=== PATIENT | male | born 2000 | race Caucasian/White ===

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

== ENCOUNTER 2020-04-09 14:27 | Emergency (ER) | payer SELFPAY ==
[2020-04-09 14:29] VITALS: BP 137/76; PULSE 86; RESP 16; TEMP 36.7; O2SAT 98
--- NOTE | 2020-04-09 14:30 | DI.RAD_ITS ---
EXAM: XR ELBOW LT COMPLETE and XR forearm LT CLINICAL HISTORY: pain s/p fall. TECHNIQUE: 2D digital imaging was performed. COMPARISON: No previous for comparison. FINDINGS: BONES: No acute fracture is present. No bony destructive lesion is seen. JOINTS: The elbow is normally aligned. No joint effusion is seen. SOFT TISSUE: Normal. IMPRESSION: Unremarkable radiographs of the left elbow and left forearm. DATA REPOSITORY: RADIATION DOSE DELIVERED:
--- NOTE | 2020-04-09 14:30 | DI.RAD_ITS ---
EXAM: XR ELBOW RT COMPLETE CLINICAL HISTORY: pain s/p fall. TECHNIQUE: 2D digital imaging was performed. COMPARISON: No exams were available for comparison FINDINGS: BONES: No acute fracture is present. No bony destructive lesion is seen. JOINTS: The elbow is normally aligned. No joint effusion is seen. SOFT TISSUE: Normal. IMPRESSION: Unremarkable radiographs of the right elbow. DATA REPOSITORY: RADIATION DOSE DELIVERED:
--- NOTE | 2020-04-09 14:41 | ED.GENADUL_ITS ---
Discharge Plan Disposition Patient Disposition: HOME Condition: Stable Discharge Details Chief Complaint: Orthopedic Clinical Impression: Contusion of arm, left, Contusion of elbow, right Primary Care Provider: James Arthur ED Provider: Francis Graham Home Meds and New Rx's Prescriptions: Continued omeprazole 40 mg capsule,delayed release(DR/EC) 40 mg PO DAILY Qty: 30 RF: 3 levalbuterol tartrate [Xopenex HFA] 200 PUFF HFA aerosol inhaler 2 puff Inhalation PRN PRNRF: 0 acetaminophen [Tylenol Extra Strength] 500 mg Tablet 500 mg PO PRN PRNRF: 0 Discharge Instructions Instructions: Contusion in Adults (ED) Additional Instructions: you can take 1000mg tylenol and 600mg ibuprofen every 6 hours as needed if pain continues in a week see your primary care provider if you have severe worsening pain, new pain such as head pain or persistent vomit return to the emergency department Medical Decision Making 19 yo male was on a ladder about 12 feet up when the ladder slid out and he landed on the ladder on his arms and legs. Did not hit head, no loc and no neck pain. Denies any head pain, neck pain, chest pain, back ain or abdominal pain. Has mild mid tibia pain and bruising is bearing weight no limp and states pain is mild so suspect contusion. Has no signs of head trauma. No midline neck pain with full rom, soft abdomen. No midline T and L spine. Has pain in the left elbow, left mid forearm with some mild swelling and right elbow tenderness but has full rom of the elbows, wrists, hands and no snuffbox tenderness. Suspect contusions of the arms but will xray the arms to eval for fx's xray negative of elbows and forearm. Remains stable without new pain, will d/c home with return precautions Differential Diagnosis Differential Diagnosis: contusion, fracture Imaging Data Radiologic Study: Attestation: I personally reviewed and interpreted this imaging study as follows: Imaging: X-Ray My impression: no acute findings left elbow xray Radiologic Study #2: Attestation: I personally reviewed and interpreted this imaging study as follows: Imaging: X-Ray Radiologist's impression: no acute findings left forearm xray Radiologic Study #3: Attestation: I personally reviewed and interpreted this imaging study as follows: Imaging: X-Ray Radiologist's impression: no acute findings right elbow xray HPI General Mode of arrival: ambulatory . Date/Time Provider Initiated Documentation: 04/09/20 14:34 . Limitations to Documentation: no limitations . Information obtained by: patient . History of Present Illness 19 year old M presents to the emergency department with the chief complaint of fall off ladder, described as moderate, Patient started experiencing this hour(s) (2) and it has been constant. No relieving factors improve symptom(s), No exacerbating factors reported . Patient did receive the following treatments prior to arrival, none Related Data Home Medications Medication Instructions Recorded Confirmed levalbuterol tartrate [Xopenex HFA] 2 puff INHALATION PRN PRN 08/13/13 04/09/20 acetaminophen [Tylenol Extra 500 mg PO PRN PRN 06/11/19 04/09/20 Strength] omeprazole 40 mg capsule,delayed 40 mg PO DAILY #30 cap 12/27/19 04/09/20 release Previous Rx's Medication Instructions Recorded omeprazole 40 mg capsule,delayed 40 mg PO DAILY #30 cap 12/27/19 release Allergies Allergy/AdvReac Type Severity Reaction Status Date / Time No Known Allergies Allergy Unverified 04/09/20 14:34 General Stated Complaint: Orthopedic LAVON: 3 Review of Systems All systems reviewed & are unremarkable except as noted in HPI and below Constitutional Constitutional: Denies chills, Denies fever(s) and Denies weakness Cardiovascular Cardiovascular: Denies chest pain and Denies dyspnea Respiratory Respiratory: Denies cough and Denies dyspnea Gastrointestinal Gastrointestinal: Denies abdominal pain, Denies nausea and Denies vomiting Neurologic Neurologic: Denies weakness Psychiatric Psychiatric: Denies depression [facility] Medical History (Updated 04/09/20 @ 15:16 by Francis Graham MD) Asthma (Resolved) Biliary dyskinesia (Inactive) Concussion (Inactive) GERD (gastroesophageal reflux disease) (Chronic) Helicobacter positive gastritis (Resolved) Hiatal hernia with gastroesophageal reflux (Inactive) Surgical History H/O adenoidectomy (Acute) H/O esophagogastroduodenoscopy (Resolved ~06/11/19) Helicobacter pylori infection treated with 14 days of antibiotics History of laparoscopic cholecystectomy (Acute ~09/18/19) Family History Mother No problems noted. Father No problems noted. Other Cancer Diabetes Social History Smoking/Tobacco Use Status: Never Alcohol Intake: former Drug use: Daily Substance use type: marijuana Current gender identity: male Do you feel safe at home: Yes Do you feel safe in your relationship?: Yes Exam Const General: no acute distress Orientation: alert HENMT Head: normal to inspection Ears: external ears normal General nose exam: external nose normal Mouth: moist mucous membranes Eyes General: appearance normal, both eyes and all related structures Neck Neck: normal visual inspection Resp Effort & Inspection: normal respiratory effort and able to speak in complete sentences Cardio Rate: regular rate Skin General skin exam: no rashes or lesions noted Neuro General: patient alert and patient oriented x3 Extrem General: full ROM Psych Mental Status: mental status grossly normal Course Vital Signs Vital signs: Vital Signs Temperature 36.7 C 04/09/20 14:29 Pulse 86 04/09/20 14:29 Respiratory Rate 16 04/09/20 14:29 Blood Pressure 137/76 04/09/20 14:29 Pulse Oximetry 98 04/09/20 14:29 Temperature 36.7 C 04/09/20 14:29 Temperature Source Skin 04/09/20 14:29 Pulse 86 04/09/20 14:29 Respiratory Rate 16 04/09/20 14:29 Respiratory Effort 04/09/20 14:34 Blood Pressure 137/76 04/09/20 14:29 Blood Pressure Position Sitting 04/09/20 14:29 Pulse Oximetry 98 04/09/20 14:29 Oxygen Delivery Method Room Air 04/09/20 14:29 Oxygen Flow Rate 0 04/09/20 14:29 Pain Level 8 04/09/20 14:35 Comment ice after fall but no otc relief 04/09/20 14:29
[2020-04-09] MEDS: Acetaminophen 500 MG TAB 1000 MG PO (14:46)
== END 2020-04-09 15:23 | disposition home or self-care (01) ==
PROVIDERS: Emergency Provider Emergency Medicine; PCP Internal Medicine
DX: S50.01XA Contusion of right elbow, initial encounter (principal); S50.12XA Contusion of left forearm, initial encounter; M79.669 Pain in unspecified lower leg; W11.XXXA Fall on and from ladder, initial encounter
CPT/HCPCS: 99284; 73080; 73090

== ENCOUNTER 2020-05-19 15:34 | Outpatient (REF) | payer BC, SELFPAY ==
[2020-05-21 14:43] LABS: Helicobacter pylori Ag, Feces Negative (Negative)
== END 2020-05-19 15:54 ==
LOC: LBN 15:34
PROVIDERS: PCP Internal Medicine; Visit Provider Surgery
DX: R11.2 Nausea with vomiting, unspecified (principal); Z86.19 Personal history of other infectious and parasitic diseases
CPT/HCPCS: 87338

== ENCOUNTER 2020-08-05 16:04 | Outpatient (REF) | payer BC, SELFPAY ==
[2020-08-08 10:00] LABS: COVID-19 RT-PCR Result NEGATIVE (Negative)
== END 2020-08-05 16:24 ==
LOC: NCHCN 16:04
PROVIDERS: PCP Internal Medicine; Visit Provider Internal Medicine
DX: Z20.828 Contact with and (suspected) exposure to other viral communicable diseases (principal)
CPT/HCPCS: U0003

== ENCOUNTER 2020-09-01 20:03 | Emergency (ER) | payer BC, SELFPAY ==
[2020-09-01 20:10] VITALS: BP 139/74; PULSE 70; RESP 18; TEMP 36.6; O2SAT 98
--- NOTE | 2020-09-01 20:23 | ED.GENADUL_ITS ---
Discharge Plan Disposition Patient Disposition: HOME Condition: Stable Discharge Details Clinical Impression: Cellulitis of foot, left Primary Care Provider: James Arthur ED Provider: Francis Graham Home Meds and New Rx's Prescriptions: New amoxicillin-pot clavulanate [Augmentin] 875-125 mg tablet 1 tab PO BID Qty: 14 RF: 0 Continued omeprazole 40 mg capsule,delayed release(DR/EC) 40 mg PO BID Qty: 60 RF: 0 levalbuterol tartrate [Xopenex HFA] 200 PUFF HFA aerosol inhaler 2 puff Inhalation PRN PRNRF: 0 acetaminophen [Tylenol Extra Strength] 500 mg Tablet 500 mg PO PRN PRNRF: 0 Discharge Instructions Instructions: Cellulitis (ED) Additional Instructions: if not improving within 5 days follow up with your primary care provider if redness spreads up the leg or you have fevers or severe worsening pain return to the emergency department Medical Decision Making 20 yo male comes in with redness of his left little toe since yesterday. Denies any known trauma but wears steal toe boots and felt his toe was getting irritated from them. No fevers, chills, or severe pain. Has erythema to the left toe circumfrentially without significant tenderness intact sensation and no significant warmth. Could just be irritated skin from improper fitting shoes but will cover for cellulitis. No findings to suggest nec fasc on exam. Differential Diagnosis Differential Diagnosis: cellulitis, irritation HPI General Mode of arrival: ambulatory . Date/Time Provider Initiated Documentation: 09/01/20 20:08 . Limitations to Documentation: no limitations . Information obtained by: patient . History of Present Illness 20 year old M presents to the emergency department with the chief complaint of left little toe redness, described as mild, and it has been constant. No relieving factors improve symptom(s), No exacerbating factors reported . Patient notes no other symptoms.. Patient did receive the following treatments prior to arrival, none Related Data Home Medications Medication Instructions Recorded Confirmed levalbuterol tartrate [Xopenex HFA] 2 puff INHALATION PRN PRN 08/13/09/01/20 acetaminophen [Tylenol Extra 500 mg PO PRN PRN 06/11/19 09/01/20 Strength] omeprazole 40 mg capsule,delayed 40 mg PO BID #60 cap 05/19/20 09/01/20 release amoxicillin-pot clavulanate 1 tab PO BID #14 tab 09/01/20 [Augmentin] Previous Rx's Medication Instructions Recorded omeprazole 40 mg capsule,delayed 40 mg PO BID #60 cap 05/19/20 release amoxicillin-pot clavulanate 1 tab PO BID #14 tab 09/01/20 [Augmentin] Allergies Allergy/AdvReac Type Severity Reaction Status Date / Time No Known Allergies Allergy Unverified 04/09/20 14:34 General Stated Complaint: Orthopedic LAVON: 4 Review of Systems All systems reviewed & are unremarkable except as noted in HPI and below Constitutional Constitutional: Denies chills, Denies fever(s) and Denies weakness Cardiovascular Cardiovascular: Denies chest pain and Denies dyspnea Respiratory Respiratory: Denies cough and Denies dyspnea Gastrointestinal Gastrointestinal: Denies abdominal pain, Denies nausea and Denies vomiting Musculoskeletal Musculoskeletal: Denies joint swelling Neurologic Neurologic: Denies weakness PFSH Medical History Asthma Biliary dyskinesia Concussion GERD (gastroesophageal reflux disease) Helicobacter positive gastritis Hiatal hernia with gastroesophageal reflux Surgical History H/O adenoidectomy H/O esophagogastroduodenoscopy (~06/11/19) Helicobacter pylori infection treated with 14 days of antibiotics History of laparoscopic cholecystectomy (~09/18/19) Family History Mother No problems noted. Father No problems noted. Other Cancer Diabetes Social History Smoking/Tobacco Use Status: Never Smoking risk assessment performed?: Yes Alcohol Intake: former Drug use: Daily Substance use type: marijuana Current gender identity: male Do you feel safe at home: Yes Do you feel safe in your relationship?: Yes Exam Const General: no acute distress Orientation: alert HENMT Head: normal to inspection Ears: external ears normal General nose exam: external nose normal Mouth: moist mucous membranes Eyes General: appearance normal, both eyes and all related structures Neck Neck: normal visual inspection Resp Effort & Inspection: normal respiratory effort and able to speak in complete sentences Cardio Rate: regular rate Skin General skin exam: elasticity normal Neuro General: patient alert and patient oriented x3 Extrem General: full ROM and capillary refill normal Psych Mental Status: mental status grossly normal Course Vital Signs Vital signs: Vital Signs Temperature 36.6 C 09/01/20 20:10 Pulse 70 09/01/20 20:10 Respiratory Rate 18 09/01/20 20:10 Blood Pressure 139/74 09/01/20 20:10 Pulse Oximetry 98 09/01/20 20:10 Temperature 36.6 C 09/01/20 20:10 Temperature Source Temporal Artery Scan 09/01/20 20:10 Pulse 70 09/01/20 20:10 Respiratory Rate 18 09/01/20 20:10 Respiratory Effort 09/01/20 20:14 Blood Pressure 139/74 09/01/20 20:10 Blood Pressure Position Sitting 09/01/20 20:10 Pulse Oximetry 98 09/01/20 20:10 Oxygen Delivery Method Room Air 09/01/20 20:10 Oxygen Flow Rate 0 09/01/20 20:10 Pain Level 3 09/01/20 20:14 Comment 09/01/20 20:10
[2020-09-01] MEDS: Amoxicillin 875/Clav. 125 TAB PO (20:26)
== END 2020-09-01 20:30 | disposition home or self-care (01) ==
LOC: ER 20:27
PROVIDERS: Emergency Provider Emergency Medicine; PCP Internal Medicine
DX: L03.032 Cellulitis of left toe (principal)
CPT/HCPCS: 99283

== ENCOUNTER 2020-09-29 21:12 | Outpatient (REF) | payer BC, SELFPAY ==
[2020-09-30 14:10] LABS: COVID-19 RT-PCR UVMMC Result Positive (Negative)
== END 2020-09-29 21:13 | disposition home or self-care (01) ==
LOC: NCHCN 21:12
PROVIDERS: PCP Internal Medicine; Visit Provider Internal Medicine
DX: Z20.822 Contact with and (suspected) exposure to COVID-19 (principal)
CPT/HCPCS: U0003

== ENCOUNTER 2021-03-09 09:42 | Emergency (ER) | payer BC, SELFPAY ==
[2021-03-09 09:53] VITALS: BP 115/73; PULSE 77; RESP 20; TEMP 37.1; O2SAT 99
--- NOTE | 2021-03-09 10:08 | W.ED.GENAD ---
Discharge Plan Disposition Patient Disposition: HOME Condition: Improving Discharge Details Clinical Impression: Asthma exacerbation Primary Care Provider: James Arthur ED Provider: Jesika Calderon Home Meds and New Rx's Prescriptions: New prednisone 20 mg tablet 40 mg PO DAILY 5 Days Qty: 10 RF: 0 albuterol sulfate 90 mcg/actuation HFA aerosol inhaler 2 puff IH QID PRN (Reason: shortness of breath or wheezing) Qty: 8 RF: 0 No Action levalbuterol tartrate [Xopenex HFA] 200 PUFF HFA aerosol inhaler 2 puff Inhalation PRN PRNRF: 0 acetaminophen [Tylenol Extra Strength] 500 mg Tablet 500 mg PO PRN PRNRF: 0 budesonide-formoterol [Symbicort] 160-4.5 mcg/actuation HFA aerosol inhaler 1 inh INHALATION BID RF: 0 omeprazole 40 mg capsule,delayed release(DR/EC) 40 mg PO DAILY RF: 0 Discharge Instructions Instructions: Asthma (ED) Additional Instructions: Follow up with primary care provider in 3-5 days. Return to ED sooner if any worsening or concerns. Increase oral fluids. Take prednisone tablets daily for the next 5 days as directed. Use albuterol inhaler 2 puffs every 4-6 hours as needed Stand Alone Forms: PENDING COVID-19 TESTING, Work Release Referrals: James Arthur MD [Primary Care Provider] - Discharge Data Discharge Date/Time-TO BE ENTERED AT DEPARTURE: 03/09/21 11:05 Medical Decision Making 20-year-old male presents to the ER with chief complaint of back. He was working on Lasix and did not have an albuterol inhaler. DuoNeb inhaler ordered, portable chest x-ray and Covid test ordered. Chest x-ray negative for acute pulmonary abnormalities. Patient re-evaluated. Is in no acute distress, no complaints at this time. Vital signs stable, breathing eupneic., Wheezing has decreased mild expiratory wheezes still noted in the left lower base. Patient is to be discharged home with albuterol and prednisone 40 mg daily x5 days. Instructed to follow-up with PCP. HPI General Mode of arrival: ambulatory. Date/Time Provider Initiated Documentation: 03/09/21 10:06. Limitations to Documentation: no limitations. Information obtained by: patient. HPI Narrative: 20-year-old male with a history of asthma presents to the ER with chief complaint of shortness of breath after working in some insulation attic today. He reports he had a asthma attack prior to arrival began coughing and vomiting. He has not taken any albuterol today prior to arrival. He denies any fever. He does endorse sore throat. Denies any sick contacts. He did see his PCP yesterday who prescribed him a new inhaler Symbicort but has not picked it up yet. Upon initial exam he does have some expiratory wheezes in the bases. He is speaking in full sentences O2 sat is 99% on room air. He is not vaccinated for Covid at this time and does not wish to be vaccinated today. He is a current daily smoker. He has a history of adenoidectomy, gastritis, GERD. Related Data Home Medications Medication Instructions Recorded Confirmed levalbuterol tartrate [Xopenex HFA] 2 puff INHALATION PRN PRN 08/13/13 03/09/21 acetaminophen [Tylenol Extra 500 mg PO PRN PRN 06/11/19 03/09/21 Strength] albuterol sulfate 2 puff IH QID PRN #8 gm 03/09/21 budesonide-formoterol [Symbicort] 1 inh INHALATION BID 03/09/21 03/09/21 omeprazole 40 mg PO DAILY 03/09/21 03/09/21 prednisone 40 mg PO DAILY 5 Days #10 tab 03/09/21 Previous Rx's Medication Instructions Recorded albuterol sulfate 2 puff IH QID PRN #8 gm 03/09/21 prednisone 40 mg PO DAILY 5 Days #10 tab 03/09/21 Allergies Allergy/AdvReac Type Severity Reaction Status Date / Time No Known Allergies Allergy Unverified 03/09/21 09:56 General Stated Complaint: SOB LAVON: 4 Review of Systems Narrative: Constitutional: Negative for weight loss, alert and oriented, well groomed, normal body habitus, appears comfortable. HEENT: Denies trauma, headaches, blurry vision, nasal discharge, sore throat, trouble swallowing. Chest: Denies chest pain, palpitations, irregular rhythm, hypertension. Respiratory: Denies hemoptysis. Positive shortness of breath nonproductive cough. GI: Denies abdominal pain, nausea, vomiting, diarrhea, constipation. : Denies dysuria, hematuria, flank pain, rectal bleeding. Neuro: Denies dizziness, blurry vision, weakness, syncope, headache or facial numbness. Hematologic: Denies easy bruising, intolerance to heat or cold, hair loss. [facility] Medical History Asthma Biliary dyskinesia Concussion GERD (gastroesophageal reflux disease) Helicobacter positive gastritis Hiatal hernia with gastroesophageal reflux Surgical History H/O adenoidectomy H/O esophagogastroduodenoscopy (~06/11/19) Helicobacter pylori infection treated with 14 days of antibiotics History of laparoscopic cholecystectomy (~09/18/19) Family History Mother No problems noted. Father No problems noted. Other Cancer Diabetes Social History Smoking/Tobacco Use Status: Current every day Tobacco Type: cigarettes Smoking risk assessment performed?: Yes Alcohol Intake: former Drug use: Daily Substance use type: marijuana Current gender identity: male Do you feel safe at home: Yes Do you feel safe in your relationship?: Yes Exam Narrative Exam Narrative: Constitutional: Alert and oriented x3. Appears stated age. Normal body habitus. Speaking in full sentences. Head: Normocephalic, no trauma. Eyes: Pupils PERRLA, Red reflex noted, EOM's intact. Eyelids symmetrical without lesions, discharge, or swelling. ENT: Bilateral TM's WNL, External ear normal to inspection, no mastoid TTP, swelling, or erythema, Nasal turbinates WNL, no nasal discharge. Normal dentition, Posterior pharynx WNL, no exudate. No anterior cervical lymphadenopathy. Chest: RRR, Normal S1, S2, distal pulses intact. Resp: Bilateral scattered expiratory wheezes to auscultation, rhonchi in the bases bilaterally. Musculoskeletal: Normal gait, 5/5 strength to all four extremities. Skin: No suspicious rashes or lesions. Capillary refill less than 2 sec. Neurologic: Cranial nerves II-XII intact. Alert and oriented x 3. DTR's intact. Hematologic/Lymphatic: No ecchymosis, no lymphadenopathy. Course Vital Signs Vital signs: Vital Signs Temperature 37.1 C 03/09/21 09:53 Pulse 77 03/09/21 09:53 Respiratory Rate 20 03/09/21 09:53 Blood Pressure 115/73 03/09/21 09:53 Pulse Oximetry 99 03/09/21 09:53 Temperature 37.1 C 03/09/21 09:53 Temperature Source Skin 03/09/21 09:53 Pulse 77 03/09/21 09:53 Respiratory Rate 20 03/09/21 09:53 Respiratory Effort Non-Labored 03/09/21 09:55 Blood Pressure 115/73 03/09/21 09:53 Blood Pressure Position Sitting 03/09/21 09:53 Pulse Oximetry 99 03/09/21 09:53 Oxygen Delivery Method Room Air 03/09/21 09:53 Oxygen Flow Rate 0 03/09/21 09:53
--- NOTE | 2021-03-09 10:24 | DI.RAD_ITS ---
Exam(s) XR PORTABLE CHEST AP EXAM: XR PORTABLE CHEST AP CLINICAL HISTORY: Wheezing, SOB, TECHNIQUE: 2D digital imaging was performed. COMPARISON: No exams were available for comparison FINDINGS: LUNGS: Clear. No pleural abnormality seen. HEART: Normal. MEDIASTINUM: Normal. BONES: Unremarkable. IMPRESSION: No acute pulmonary findings. DATA REPOSITORY: RADIATION DOSE DELIVERED:
[2021-03-09] MEDS: Albuterol/Ipratropium 3 ML UPD VIAL UPD (10:37)
[2021-03-11 12:42] LABS: COVID-19 RT-PCR UVMMC Result Negative (Negative)
== END 2021-03-09 11:05 | disposition home or self-care (01) ==
PROVIDERS: Emergency Provider Registered Nurse Emergency; PCP Internal Medicine
DX: J45.901 Unspecified asthma with (acute) exacerbation (principal); F17.210 Nicotine dependence, cigarettes, uncomplicated; Z20.822 Contact with and (suspected) exposure to COVID-19
CPT/HCPCS: 94640; 99283; U0003; 71045; J7620

== ENCOUNTER 2021-03-23 17:16 | Outpatient (REF) | payer BC, SELFPAY ==
[2021-03-23 17:16] LABS: Abs Immature Grans 0.02 10^3/uL (0.0-0.06); Absolute Basophil Count 0.06 10^3/uL (0.0-0.2); Absolute Eosinophil Count 0.03 10^3/uL (0.0-0.7); Absolute Lymphocyte Count 1.91 10^3/uL (1.2-3.4); Absolute Monocyte Count 0.68 10^3/uL (0.1-0.8); Absolute Neutrophil Count 4.42 10^3/uL (1.2-6.7); Basophils % 0.8; Eosinophils % 0.4; HCT 43.1 % (40.0-50.0); HGB 14.2 g/dL (13.5-17.5); Immature Grans % 0.3; Lymphocytes % 26.8; MCHC 32.9 % (32.0-36.0); MCV 91.1 fL (80-95); MPV 11.1 fL (8.0-11.0); Monocytes % 9.6; Neutrophils % 62.1; Nucleated RBC 0 %; Platelet Count 203 10^3/uL (130-400); RBC 4.73 10^6/uL (4.36-5.78); RDW 12.6 % (11.8-14.1); WBC 7.12 10^3/uL (4.4-10.8)
[2021-03-24 10:00] LABS: IgE 73 IU/mL (<158)
[2021-03-24 21:37] LABS: Aspergillus Fumigatus IgE <0.35 kU/L
== END 2021-03-23 17:17 | disposition home or self-care (01) ==
LOC: LBN 17:16
PROVIDERS: PCP Internal Medicine; Visit Provider Student in an Organized Health Care Education/Training Program
DX: J45.909 Unspecified asthma, uncomplicated (principal)
CPT/HCPCS: 82785; 85025; 86003

== ENCOUNTER 2021-08-10 08:53 | Emergency (ER) | payer OTHER, SELFPAY ==
[2021-08-10 08:57] VITALS: BP 128/70; PULSE 88; TEMP 37.2; O2SAT 100
--- NOTE | 2021-08-10 09:15 | DI.CT_ITS ---
Exam(s) CT HEAD WO EXAM: CT HEAD WO CLINICAL HISTORY: Global headache. TECHNIQUE: Imaging Protocol: Axial computed tomography images with coronal and sagittal reformatted images were created and reviewed COMPARISON: No exams were available for comparison FINDINGS: Ventricles and Extra axial spaces: Normal in size and morphology for the patient's age. Hemorrhage: None. Cerebral parenchyma: Normal. Midline shift: None. Brainstem/Cerebellum: Normal. Calvarium: Normal. Visualized Paranasal sinuses/Mastoids: Clear. Soft Tissues: Unremarkable. IMPRESSION: 1. No acute intracranial process. 2. Results of this exam have been verbally communicated with provider. RADIATION DOSE DELIVERED: 762.23mGy.cm Total DLP DATA REPOSITORY: All CT scans at this facility are submitted to the National Radiology Data Registry (NRDR) Dose Index Registry (DIR) with the [employer] (A[employer]). RADIATION OPTIMIZATION: All CT scans at this facility use at least one of these dose optimization te chniques: automated exposure control; mA and/or kV adjustment per patient size (includes targeted exa ms where dose is matched to clinical indication); or iterative reconstruction.
--- NOTE | 2021-08-10 09:17 | ED.GENADUL_ITS ---
Discharge Plan Disposition Patient Disposition: HOME Condition: Improving Discharge Details Clinical Impression: Migraine Primary Care Provider: James Arthur ED Provider: Familia Madison Home Meds and New Rx's Prescriptions: Continued acetaminophen [Tylenol Extra Strength] 500 mg Tablet 500 mg PO PRN PRNRF: 0 methylphenidate HCl 18 mg tablet extended release 24hr 18 mg PO DAILY RF: 0 omeprazole 40 mg capsule,delayed release(DR/EC) 40 mg PO DAILY RF: 0 albuterol sulfate 90 mcg/actuation HFA aerosol inhaler 2 puff IH QID PRN (Reason: shortness of breath or wheezing) Qty: 8 RF: 0 budesonide-formoterol [Symbicort] 160-4.5 mcg/actuation HFA aerosol inhaler 2 inh INHALATION BID RF: 0 Discharge Instructions Instructions: General Headache (ED) Additional Instructions: Home to rest today. Small, frequent sips of fluids so that you maintain good hydration. Return to the ER if you develop fever, stiff neck, worsening headache, or any other acute concerns. Medical Decision Making 21-year-old male presents from home with headache that began 5 days ago abruptly, he states this occurred using a water pipe to smoke marijuana, but he felt that his inhalation exhalation were normal and there was no cough or forced air explosion. He states the headache has been dull, constant, worsened by bright lights and loud noises. States she has had some migraine type headaches in the past but not for this many persistent days. Afebrile, no evidence of medicine she is . His neurologic exam is reassuring and without neurologic deficits. IV access established, screening labs obtained and patient referred for CT scan of the head to rule out intracranial bleed or mass, fluids and parenteral medications initiated and patient referred for screening laboratories. CT scan of the head without acute intracranial findings. Patient's pain improved dramatically following fluids and medications. Most consistent with migraine type cephalgia. He is stable and improved, appropriate for discharge to home. Lab Data Lab results reviewed: Yes I reviewed the patient's lab results. Labs: Laboratory Results - last 24 hr 08/10/21 09:25 WBC 8.19 RBC 4.74 Hgb 14.2 Hct 43.5 MCV 91.8 MCH 30.0 MCHC 32.6 RDW 12.1 Plt Count 229 MPV 10.3 HPI General Mode of arrival: ambulatory . Date/Time Provider Initiated Documentation: 08/10/21 09:01 . Limitations to Documentation: no limitations . Information obtained by: patient . History of Present Illness 21 year old M presents to the emergency department with the chief complaint of Headache for 5 days, described as moderate, severe and similar to prior episodes, Quality is described as dull and constant, and is localized to the head. Patient reports no radiation. Patient started experiencing this day(s) and it has been constant. Other factors that worsen symptoms (Worsened with loud noises and bright lights) . Patient notes denies confusion, chest pain, fever/chills and syncope. Patient did receive the following treatments prior to arrival, other (Tylenol) Related Data Home Medications Medication Instructions Recorded Confirmed acetaminophen [Tylenol Extra 500 mg PO PRN PRN 06/11/19 08/10/21 Strength] albuterol sulfate 2 puff IH QID PRN #8 gm 03/09/21 08/10/21 omeprazole 40 mg PO DAILY 03/09/21 08/10/21 budesonide-formoterol HFA 160 2 inh INHALATION BID g 03/23/21 08/10/21 mcg-4.5 mcg/actuation aerosol inhaler methylphenidate HCl 18 mg PO DAILY 08/10/21 08/10/21 Previous Rx's Medication Instructions Recorded albuterol sulfate 2 puff IH QID PRN #8 gm 03/09/21 Allergies Allergy/AdvReac Type Severity Reaction Status Date / Time No Known Allergies Allergy Verified 08/10/21 09:01 General Stated Complaint: Headache LAVON: 3 Review of Systems Narrative: No fever, stiff neck, recent illness. No fall or trauma. Will note a family history of aneurysms. 8 systems reviewed and otherwise negative. Patient denies motor weakness or sensory dysfunction. PFSH All Active Problems (Updated 08/10/21 @ 10:00 by Familia Madison MD) Migraine (Chronic) Thrush (Acute) Asthma (Chronic) Environmental exposure (Acute) Asthma exacerbation (Acute) GERD (gastroesophageal reflux disease) (Chronic) Medical History Asthma Biliary dyskinesia Concussion Helicobacter positive gastritis Hiatal hernia with gastroesophageal reflux Surgical History H/O adenoidectomy H/O esophagogastroduodenoscopy (~06/11/19) Helicobacter pylori infection treated with 14 days of antibiotics History of laparoscopic cholecystectomy (~09/18/19) Family History Mother No problems noted. Father No problems noted. Other Cancer Diabetes Social History Smoking/Tobacco Use Status: Current every day Tobacco Type: cigarettes Smoking risk assessment performed?: Yes Alcohol Intake: current Alcohol Intake frequency: a few times a month Alcohol type: beer and hard liquor Drug use: Daily Substance use type: marijuana Current gender identity: male Do you feel safe at home: Yes Do you feel safe in your relationship?: Yes Exam Narrative Exam Narrative: GEN: awake, alert, oriented 3. Pleasant, well groomed, interactive. HEAD: Normocephalic, atraumatic ENT: Mucous membranes moist, oropharynx unremarkable, tympanic membranes clear bilaterally external ear exam unremarkable EYES: PERRL, EOMI NECK: Full ROM, no NATALYA, no menigismus CHEST/RESP: Nontender, clear to auscultation bilateral, no wheeze/rhonchi/rales CARDIOVASCULAR: RRR, no murmur, rub garrison. 2+ Rad pulse bilateral ABDOMEN: Soft, nontender, no mass. +Bowel sounds EXT: Full ROM, no edema, no rash Neuro: Cranial nerves II through XII intact, gait narrow based with good heel strike, grossly normal neurologic exam, conversant, interactive. Psych: Speech fluent, thoughts congruent, affect normal Course Vital Signs Vital signs: Vital Signs Temperature 37.2 C 08/10/21 08:57 Pulse 88 08/10/21 08:57 Blood Pressure 128/70 08/10/21 08:57 Pulse Oximetry 100 08/10/21 08:57 Temperature 37.2 C 08/10/21 08:57 Temperature Source Temporal Artery Scan 08/10/21 08:57 Pulse 88 08/10/21 08:57 Respiratory Effort Non-Labored 08/10/21 08:59 Blood Pressure 128/70 08/10/21 08:57 Blood Pressure Position Sitting 08/10/21 08:57 Pulse Oximetry 100 08/10/21 08:57 Oxygen Delivery Method Room Air 08/10/21 08:57 Oxygen Flow Rate 0 08/10/21 08:57 Pain Level 7 08/10/21 08:57 PAWSS Have you Been Recently Intoxicated or Drunk Within the Last 30 days?: No Have you Ever Experienced Previous Episodes of Alcohol Withdrawal?: No Have you ever Experienced Withdrawal Seizures?: No Have you ever Experienced Delirium Tremens(DT)s?: No Have you ever undergone Alcohol Rehabilitation Treatment (i.e, inpt ot outpatient treatment programs)?: No Have you ever Experienced Blackouts?: No Have you ever Combined Alcohol with other Downers within the last 90 days?: No Have you ever Combined Alcohol with any other Substance of Abuse during the last 90 days?: No Positive Blood Alcohol level on Presentation? [PCS.BAL]: No Evidence of Increased Autonomic Activity (i.e. HR>120, tremor, sweating, paige tation, nausea)?: No Result: 0
[2021-08-10] MEDS: Normal Saline 1,000 ML 1000 ML IV (09:30)
[2021-08-10] MEDS: Dexamethasone 4 MG/ML VIAL 8 MG IVP (09:31)
[2021-08-10] MEDS: HYDROmorphone 2 MG/ML VIAL 1 MG IVP (09:32)
[2021-08-10] MEDS: Ketorolac 30 MG/ML VIAL 15 MG IVP (09:33)
[2021-08-10 09:52] LABS: HCT 43.5 % (40.0-50.0); HGB 14.2 g/dL (13.5-17.5); MCHC 32.6 % (32.0-36.0); MCV 91.8 fL (80-95); MPV 10.3 fL (8.0-11.0); Platelet Count 229 10^3/uL (130-400); RBC 4.74 10^6/uL (4.36-5.78); RDW 12.1 % (11.8-14.1); RDW-SD 41.1 fL; WBC 8.19 10^3/uL (4.4-10.8)
[2021-08-10 10:02] LABS: Anion Gap 6.5 mmol/L (3-11); BUN 11 mg/dL (7-18); CO2 29.5 mmol/L (21.0-32.0); CREATININE 0.8 mg/dL (0.70-1.30); Calcium 8.8 mg/dL (8.5-10.1); Chloride 105 mmol/L (98-107); Glucose 98 mg/dL (74-106); Sodium 141 mmol/L (136-145)
== END 2021-08-10 10:30 | disposition home or self-care (01) ==
PROVIDERS: Emergency Provider Emergency Medicine; PCP Internal Medicine
DX: G43.909 Migraine, unspecified, not intractable, without status migrainosus (principal)
CPT/HCPCS: 80048; 85027; 96361; 96374; 96375; 99284; 70450; 99283; J1100; J1885

== ENCOUNTER 2024-10-28 15:05 | Emergency (ER) | payer OTHER, SELFPAY ==
[2024-10-28 15:16] VITALS: BP 140/75; PULSE 63; RESP 15; TEMP 36.7; O2SAT 97
--- NOTE | 2024-10-28 15:46 | ED.GENADUL_ITS ---
Discharge Plan Disposition Patient Disposition: Home Discharge Details Clinical Impression: Community acquired pneumonia, Asthma exacerbation Primary Care Provider: James Arthur ED Provider: Cathy Johnson Home Meds and New Rx's Prescriptions: New amoxicillin-pot clavulanate 875-125 mg tablet 1 tab PO BID Qty: 9 0RF azithromycin 250 mg tablet 250 mg PO DAILY 4 Days Qty: 4 0RF Rx Instructions: start on day 2 of therapy No Action acetaminophen [Tylenol Extra Strength] 500 mg Tablet 500 mg PO PRN PRN methylphenidate HCl 18 mg tablet extended release 24hr 18 mg PO DAILY Patient Comments: TAKE ONE TABLET BY MOUTH EVERY DAY omeprazole 40 mg capsule,delayed release(DR/EC) 40 mg PO DAILY albuterol sulfate 90 mcg/actuation HFA aerosol inhaler 2 puff IH QID PRN (Reason: shortness of breath or wheezing) Qty: 8 0RF budesonide-formoterol [Symbicort] 160-4.5 mcg/actuation HFA aerosol inhaler 2 inh INHALATION BID Patient Comments: Inhale 1 puff using inhaler twice a day and may take 1 puff between scheduled doses as needed for rescue Discharge Instructions Instructions: Atypical Pneumonia (Mycoplasma and Viral) (DC) Additional Instructions: A referral has been made to care management to have you establish care with a primary care provider. Your symptoms are most consistent with community-acquired pneumonia following a viral illness. Please take the full course of antibiotics as prescribed. Keep in mind that the Augmentin may cause belly upset, so use Activia yogurt or a probiotic such as Culturelle to prevent antibiotic associated diarrhea. Continue taking your albuterol inhaler 4 puffs with spacer every 4-6 hours as needed. I recommend the use a humidifier at bedside, saline nasal spray to help clear up the nasal secretions in the upper airway, and throat lozenges for sore/raspy throat. Return to emergency care if you develop new fevers despite treatment, difficulty swallowing, chest pain, are unable to hold down any foods or fluids, or if you are very worried and need to be rechecked again immediately Stand Alone Forms: Work Release Referrals: Care Management [Provider Group] Discharge Data Discharge Date/Time-TO BE ENTERED AT DEPARTURE: 10/28/24 18:04 HPI General Date/Time Provider Initiated Documentation: 10/28/24 15:29 . HPI Narrative: Estuardo is a 24 year old male who presents to the emergency department today for evaluation of chest discomfort, wheezing, and cough productive of greenish sputum with occasional scant blood. Reports he started with viral sx on 10/18 (congestion, ear fullness, cough), was treated with prednisone, inhalers, and tessalon perles with no improvement in sx. Over the last few days developed sore throat/hoarse voice, productive sputum, chest discomfort, and low appetite. +tobacco user. Past medical history is significant for asthma. Denies immunocompromise, regular ETOH use, or other chronic conditions. Physical exam remarkable for diffuse wheezes in all lung ponce. Easy work of breathing, able to speak in complete sentences. Normal heart sounds. MMM. Normal oropharynx, no erythema, tonsillar hypertrophy, or uvular deviation. Full ROM of neck. History and presentation concerning for community-acquired pneumonia, especially in light of recently worsening symptoms after viral illness. A chest x-ray was obtained, no obvious infiltrate noted, however based on patient clinical course and presentation, will treat empirically with antibiotics. Patient does not meet SIRS criteria, no red flags concerning for dehydration or electrolyte imbalance requiring blood work. I independently interpreted the following tests: Flu/COVID/RSV negative. No obvious infiltrates, pneumothorax, cardiomegaly on chest x-ray. While in the emergency department, Estuardo received a DuoNeb with full improvement of the wheezing and good improvement of work of breathing. He received first dose of Augmentin and azithromycin here in ED. Reviewed discharge instructions with patient, including symptomatic management, use of antibiotics and red flags indicating need for return to emergency care. As he does not have a PCP, referral made to care management to help him establish care with PCP. Related Data Home Medications ?Medication ?Instructions ?Recorded ?Confirmed acetaminophen 500 mg tablet 500 mg PO PRN PRN 06/11/19 10/28/24 (Tylenol Extra Strength) albuterol sulfate 90 mcg/actuation 2 puff inhalation QID PRN 03/09/21 10/28/24 aerosol inhaler shortness of breath or wheezing #8 grams omeprazole 40 mg capsule,delayed 40 mg PO DAILY 03/09/21 10/28/24 release budesonide-formoterol HFA 160 2 inh inhalation BID 03/23/21 10/28/24 mcg-4.5 mcg/actuation aerosol inhaler (Symbicort) methylphenidate HCl 18 mg 18 mg PO DAILY 08/10/21 10/28/24 tablet,extended release 24 hr amoxicillin 875 mg-potassium 1 tab PO BID #9 tabs 10/28/24 clavulanate 125 mg tablet azithromycin 250 mg tablet 250 mg PO DAILY 4 days #4 tabs 10/28/24 Previous Rx's ?Medication ?Instructions ?Recorded albuterol sulfate 90 mcg/actuation 2 puff inhalation QID PRN 03/09/21 aerosol inhaler shortness of breath or wheezing #8 grams amoxicillin 875 mg-potassium 1 tab PO BID #9 tabs 10/28/24 clavulanate 125 mg tablet azithromycin 250 mg tablet 250 mg PO DAILY 4 days #4 tabs 10/28/24 Allergies Allergy/AdvReac Type Severity Reaction Status Date / Time No Known Allergies Allergy Verified 10/28/24 15:19 General Stated Complaint: RespSymp LAVON: 4 Review of Systems Narrative: See HPI Exam Const General: cooperative, healthy appearing, comfortable, no acute distress, well developed and well groomed Nutritional Appearance: average body habitus and well nourished Orientation: alert and oriented x3 HENMT Head: normal to inspection and normocephalic Ears: hearing grossly normal bilaterally General nose exam: external nose normal Face and sinus: normal facial exam Mouth: oral mucosae normal, oropharynx normal and moist mucous membranes Throat: posterior oropharynx normal, tonsils normal and uvula midline Neck Neck: normal visual inspection Resp Effort & Inspection: normal respiratory effort and able to speak in complete sentences Auscultation: wheezes (diffuse) expiratory wheezes Cardio Rate: regular rate Rhythm: regular rhythm Skin General skin exam: no rashes or lesions noted Course Vital Signs Vital signs: Vital Signs Temperature 36.7 C 10/28/24 15:16 Pulse 63 10/28/24 15:16 Respiratory Rate 15 10/28/24 15:16 Blood Pressure 140/75 10/28/24 15:16 Pulse Oximetry 97 10/28/24 15:16 Temperature 36.7 C 10/28/24 15:16 Pulse 63 10/28/24 15:16 Respiratory Rate 15 10/28/24 15:16 Respiratory Effort Short of Breath, Labored 10/28/24 15:41 Respiratory Depth Shallow 10/28/24 15:41 Blood Pressure 140/75 10/28/24 15:16 Blood Pressure Position Sitting 10/28/24 15:16 Pulse Oximetry 97 10/28/24 15:16 Medical Decision Making Imaging Data Radiologic Study: Radiologist's impression: Exam(s) XR CHEST 2V PA LATERAL EXAM: XR CHEST 2V PA LATERAL CLINICAL HISTORY: cough w sputum production TECHNIQUE: 2D digital imaging was performed. Two views. COMPARISON: CR XR PORTABLE CHEST AP from 03/09/2021 FINDINGS: HEART: Normal size. Aorta: Not dilated. PULMONARY VASCULATURE: Normal. MEDIASTINUM: Unremarkable. LUNGS: Clear. PLEURAL SPACE: No pleural effusion or pneumothorax. BONE:Unremarkable for age. SOFT TISSUES: Unremarkable. IMPRESSION: No acute abnormality. Quality:SDOH Health Related Social Needs: No Data to Display PFSH All Active Problems (Updated 10/28/24 @ 17:33 by Cathy Black) Community acquired pneumonia (Acute) Migraine (Chronic) Thrush (Acute) Asthma (Chronic) Environmental exposure (Acute) Asthma exacerbation (Acute) GERD (gastroesophageal reflux disease) (Chronic) Medical History Asthma Biliary dyskinesia Concussion Helicobacter positive gastritis Hiatal hernia with gastroesophageal reflux Surgical History H/O adenoidectomy H/O esophagogastroduodenoscopy (~06/11/19) Helicobacter pylori infection treated with 14 days of antibiotics History of laparoscopic cholecystectomy (~09/18/19) Family History Mother No problems noted. Father No problems noted. Other Cancer Diabetes Social History Smoking/Tobacco Use Status: Current every day Tobacco Type: cigarettes and e- cigarettes Smoking risk assessment performed?: Yes Alcohol Intake: current Alcohol Intake frequency: a few times a month Alcohol type: beer and hard liquor Drug use: Daily Substance use type: marijuana Current gender identity: male Do you feel safe at home: Yes Do you feel safe in your relationship?: Yes
[2024-10-28] MEDS: Acetaminophen 325 MG TAB 650 MG PO (16:22)
[2024-10-28] MEDS: Albuterol/Ipratropium 3 ML UPD VIAL UPD (16:22)
[2024-10-28 16:28] LABS: COVID-19 PCR Negative (Negative); Influenza A PCR Negative (Negative); Influenza B PCR Negative (Negative); RSV PCR Negative (Negative)
[2024-10-28 16:30] LABS: Source Nasopharynx
[2024-10-28] MEDS: Azithromycin 250 MG TAB 500 MG PO (17:47)
[2024-10-28] MEDS: Amoxicillin 875/Clav. 125 TAB PO (17:48)
[2024-10-28 17:51] VITALS: BP 133/81; PULSE 58; RESP 13; TEMP 36.6; O2SAT 99
== END 2024-10-28 18:04 | disposition home or self-care (01) ==
PROVIDERS: Emergency Provider Nurse Practitioner Family; PCP Internal Medicine
DX: J18.9 Pneumonia, unspecified organism (principal); J45.901 Unspecified asthma with (acute) exacerbation
CPT/HCPCS: 87637; 94640; 99284; 71046; J7620